=== PATIENT | female | born 1980 | race Caucasian/White ===

== ENCOUNTER → 2018-03-27 | Outpatient (CLI) | payer BC, OTHER ==
[2018-03-27 14:58] LABS: Source, Urine Clean Catch
[2018-03-27 17:00] LABS: Bilirubin, Urine Neg (Neg); Blood, Urine 1+ (Neg); Glucose Qualitative, Urine Neg (Neg); Ketones, Urine 2+ (Neg); Leukocyte Esterase, Urine Neg (Neg); Nitrite, Urine Neg (Neg); Protein, Urine 1+ (Neg); Specific Gravity, Urine 1.025 (1.003-1.022); Urobilinogen, Urine NORM (Normal)
[2018-03-27 17:10] LABS: Appearance, Urine Cloudy (Clear); Color, Urine Yellow (P-Yellow)
[2018-03-27 17:11] LABS: Amorphous Heavy (0-Heavy); Squamous Epithelial Cells Many /hpf (Few)
[2018-03-27 17:12] LABS: White Blood Cells, Urine 0-2 /hpf (0-5)
[2018-03-27 17:13] LABS: Bacteria Not Seen /hpf
== END ==
LOC: LAB 12:15 → LAB SHORT 12:15
PROVIDERS: Nurse Practitioner Family
DX: R10.9 Unspecified abdominal pain (principal)
CPT/HCPCS: 81001

== ENCOUNTER → 2018-04-01 | Outpatient (CLI) | payer BC, OTHER ==
[2018-04-01 12:09] LABS: Source, Urine Clean Catch
[2018-04-01 16:31] LABS: Bilirubin, Urine Neg (Neg); Blood, Urine Neg (Neg); Glucose Qualitative, Urine Neg (Neg); Ketones, Urine Neg (Neg); Leukocyte Esterase, Urine Neg (Neg); Nitrite, Urine Neg (Neg); Protein, Urine Neg (Neg); Urobilinogen, Urine NORM (Normal)
[2018-04-01 16:39] LABS: Appearance, Urine Clear (Clear); Color, Urine Pale Yellow (P-Yellow)
== END ==
LOC: LAB SHORT 11:03 → LAB 11:03
PROVIDERS: Nurse Practitioner Family
DX: R10.9 Unspecified abdominal pain (principal)
CPT/HCPCS: 81003

== ENCOUNTER → 2018-04-04 | Outpatient (CLI) | payer BC, OTHER ==
[2018-04-04 13:10] LABS: BASOPHILS ABSOLUTE AUTO 0.05 K/mm3 (0.00-0.23); BASOPHILS PERCENT AUTO 1 % (0-2); EOSINOPHILS ABSOLUTE AUTO 0.18 K/mm3 (0.00-0.68); EOSINOPHILS PERCENT AUTO 3 % (0-6); Hematocrit 38.5 % (33.0-51.0); Hemoglobin 13.7 g/dL (11.5-16.0); IMMATURE GRAN ABSOLUTE AUTO 0.01 K/mm3 (0.00-0.10); IMMATURE GRAN PERCENT AUTO 0 % (0-1); LYMPHOCYTES ABSOLUTE AUTO 2.21 K/mm3 (0.84-5.20); LYMPHOCYTES PERCENT AUTO 31 % (21-46); MONOCYTES ABSOLUTE AUTO 0.41 K/mm3 (0.16-1.47); MONOCYTES PERCENT AUTO 6 % (4-13); Mean Corpuscular HGB 30.8 pg (26.0-34.0); Mean Corpuscular HGB Conc 35.6 g/dL (31.5-36.5); Mean Corpuscular Volume 87 fL (80-100); Mean Platelet Volume 9.3 fL (9.1-12.4); NEUTROPHILS ABSOLUTE AUTO 4.29 K/mm3 (1.96-9.15); NEUTROPHILS PERCENT AUTO 60 % (41-73); Platelet Count 245 K/mm3 (150-400); RDW Coefficient Variation 11.8 % (11.7-14.2); RDW Standard Deviation 37.3 fL (35.1-46.3); Red Blood Cell Count 4.45 M/mm3 (3.80-5.20); White Blood Cell Count 7.15 K/mm3 (4.00-11.30)
[2018-04-04 13:49] LABS: Anion Gap 10 mmol/L (6-16); Blood Urea Nitrogen 12 mg/dL (8-24); Bun/Creatinine Ratio 13.5 (12.0-20.0); CO2, Blood 24 mmol/L (21-32); Calcium, Blood 8.6 mg/dL (8.5-10.1); Chloride, Blood 104 mmol/L (98-108); Creatinine, Blood 0.89 mg/dL (0.40-1.00); Glomerular Filtration Rate >60 (60-); Glucose, Blood 89 mg/dL (70-99); Potassium, Blood 3.9 mmol/L (3.5-5.5); Sodium, Blood 138 mmol/L (136-145); Thyroid Stimulating Hormone 1.691 uIU/mL (0.360-4.800)
== END ==
LOC: LAB SHORT 12:58 → LAB EV 12:58
PROVIDERS: Physician Assistant Surgical
DX: M54.5 Low back pain (principal)
CPT/HCPCS: 80048; 84443; 85025

== ENCOUNTER → 2018-11-17 | Outpatient (CLI) | payer BC, OTHER | END | disposition home or self-care (01) | LOC: LAB 15:42 → LAB SHORT 15:42 | DX: L70.0 Acne vulgaris (principal); Z79.899 Other long term (current) drug therapy | CPT/HCPCS: 81025 ==

== ENCOUNTER → 2019-01-05 | Outpatient (CLI) | payer BC, OTHER ==
[2019-01-06 07:17] LABS: HIV SCREEN 4TH GENERATION WRFX Non Reactive (Non Reactive)
[2019-01-06 08:15] LABS: HBSAG SCREEN Negative (Negative); HCV ANTIBODY 0.4 (0.0-0.9)
== END | disposition home or self-care (01) ==
LOC: LAB EV 11:55 → LAB SHORT 11:55
PROVIDERS: Family Medicine
DX: Z20.9 Contact with and (suspected) exposure to unspecified communicable disease (principal)
CPT/HCPCS: 84460; 86317; 86803; 87340; 87389

== ENCOUNTER → 2019-02-12 | Outpatient (CLI) | payer OTHER, BC ==
[2019-02-13 22:08] LABS: HIV SCREEN 4TH GENERATION WRFX Non Reactive (Non Reactive)
== END | disposition home or self-care (01) ==
LOC: LAB EV 15:40 → LAB SHORT 15:40
PROVIDERS: Family Medicine
DX: Z20.9 Contact with and (suspected) exposure to unspecified communicable disease (principal)
CPT/HCPCS: 86803; 87389

== ENCOUNTER → 2019-03-03 | Outpatient (CLI) | payer BC, OTHER | END | disposition home or self-care (01) | LOC: LAB EV 18:28 → LAB SHORT 18:28 | DX: L70.0 Acne vulgaris (principal); Z79.899 Other long term (current) drug therapy | CPT/HCPCS: 81025 ==

== ENCOUNTER 2019-04-02 08:00 | Day surgery (SDC) | payer BC, OTHER ==
[~2019-04-02 08:00] MED LIST: ACCUTANE PO; Budeprion Xl300 MG PO; CETI5 PO; ESCI20 PO; Flovent 44 mc10.6 GM INH; Singulair10 MG PO
--- NOTE | 2019-04-02 08:33 | NUR ---
Ambulatory in Day Surgery History, Chart, Medications and Allergies reviewed before start of procedure.Lungs clear T/O to Auscultation. Patient States Post-Procedure ride home has been arranged.
--- NOTE | 2019-04-02 08:53 | NUR ---
04/02/19 0853 Clemencia Shoemaker History, Chart, Medications and Allergies reviewed before start of procedure. PATIENT CONFIRMS NPO STATUS AND AGREES WITH SCHEDULED PROCEDURE. MONITOR INTACT WITH CONTINUOUS PULSE OXIMETRY AND INTERMITTENT BP. O2 VIA N/C INTACT THROUGHOUT SEDATION/PROCEDURE. 3-LEAD EKG REVIEWED WITH PHYSICIAN PRIOR TO START OF PROCEDURE. PROCEDURE TO BE UNDER VERSED AND FENTANYL SEDATION DUE TO SLEEP APNEA.
--- NOTE | 2019-04-02 10:06 | NUR ---
Patient up to Ambulate independently. Gait steady. Discharge instructions reviewed with patient. Patient verbalizes understanding. Copy given to patient to take home. Patient States Post-Procedure ride home has been arranged. Discharged via wheelchair to private car for ride home.
== END 2019-04-02 23:13 | disposition home or self-care (01) ==
LOC: ORSCMMR 08:00 → ORD 09:00 → ORSCMMR 23:13
PROVIDERS: Internal Medicine Gastroenterology
PROC: 0DJD8ZZ Inspection of Lower Intestinal Tract, Via Natural or Artificial Opening Endoscopic (ICD-10-PCS; principal; 2019-04-02 09:00)
DX: K62.5 Hemorrhage of anus and rectum (principal); Z80.0 Family history of malignant neoplasm of digestive organs; J45.909 Unspecified asthma, uncomplicated; F32.9 Major depressive disorder, single episode, unspecified; G47.30 Sleep apnea, unspecified; Z87.891 Personal history of nicotine dependence; Z79.899 Other long term (current) drug therapy
CPT/HCPCS: 84703; J2250; J3010; J7120

== ENCOUNTER → 2019-07-22 | Outpatient (CLI) | payer BC, OTHER | END | disposition home or self-care (01) | LOC: LAB SHORT 18:56 → LAB EV 18:56 | DX: L70.0 Acne vulgaris (principal); Z79.899 Other long term (current) drug therapy | CPT/HCPCS: 81025 ==

== ENCOUNTER → 2021-07-27 | Outpatient (CLI) | payer BC, OTHER ==
[2021-07-28 15:10] LABS: HPV 16 Negative (Negative); HPV 18 Negative (Negative); HPV OTHER HR TYPES Negative (Negative)
== END | disposition home or self-care (01) ==
LOC: LAB SHORT 14:53
PROVIDERS: Family Medicine
DX: Z01.419 Encounter for gynecological examination (general) (routine) without abnormal findings (principal)
CPT/HCPCS: 87624; G0123

== ENCOUNTER 2023-05-09 18:31 | Emergency (ER) | payer OTHER ==
[~2023-05-09] VITALS: Ht 157.5 cm; Wt 71.7 kg
[2023-05-09 18:40] VITALS: BP 120/79
[2023-05-11 08:11] LABS: HCV ANTIBODY Non Reactive (Non Reactive); HIV AB/P24 AG SCREEN Non Reactive (Non Reactive)
== END 2023-05-09 19:08 | disposition home or self-care (01) ==
LOC: ER 18:31
PROVIDERS: Physician Assistant
DX: Z77.21 Contact with and (suspected) exposure to potentially hazardous body fluids (principal); S61.402A Unspecified open wound of left hand, initial encounter; J45.909 Unspecified asthma, uncomplicated; Z91.040 Latex allergy status; Z79.899 Other long term (current) drug therapy; W26.8XXA Contact with other sharp object(s), not elsewhere classified, initial encounter; Y92.89 Other specified places as the place of occurrence of the external cause; Y99.0 Civilian activity done for income or pay
CPT/HCPCS: 84460; 86317; 86803; 87389; 99282

== ENCOUNTER → 2023-07-09 | Outpatient (CLI) | payer OTHER ==
[2023-07-11 03:10] LABS: CHLAMYDIA TRACHOMATIS, NAA Negative (Negative)
== END | disposition home or self-care (01) ==
LOC: LAB 09:08 → LAB SHORT 09:08
PROVIDERS: Family Medicine
DX: N76.0 Acute vaginitis (principal)
CPT/HCPCS: 87491; 87591

== ENCOUNTER → 2024-03-06 | Outpatient (CLI) | payer OTHER | LOC: LAB SHORT 17:31 → LAB 17:31 | DX: Z01.419 Encounter for gynecological examination (general) (routine) without abnormal findings (principal) ==

== ENCOUNTER → 2024-05-29 | Outpatient (CLI) | payer OTHER ==
[2024-05-29 19:19] LABS: Candida Group, PCR NOT DETECTED (NOT DETECT); Candida glabrata-krusei, PCR NOT DETECTED (NOT DETECT)
[2024-05-29 19:20] LABS: Bacterial Vaginosis PCR Positive (NEGATIVE)
[2024-05-31 09:55] LABS: APTIMA MEDIA TYPE Unisex Swab; C. TRACHOMATIS BY TMA Negative (Negative); N. GONORRHOEAE BY TMA Negative (Negative); SPECIMEN SOURCE Vaginal; T. VAGINALIS BY TMA Negative (Negative)
[2024-05-31 12:15] LABS: APTIMA MEDIA TYPE Unisex Swab; C. TRACHOMATIS BY TMA Negative (Negative); N. GONORRHOEAE BY TMA Negative (Negative); SPECIMEN SOURCE Pharynx
== END | disposition home or self-care (01) ==
LOC: LAB SHORT 16:43 → LAB 16:43
PROVIDERS: Family Medicine
DX: N89.8 Other specified noninflammatory disorders of vagina (principal); Z20.2 Contact with and (suspected) exposure to infections with a predominantly sexual mode of transmission
CPT/HCPCS: 87481; 87491; 87591; 87661; 87801

== ENCOUNTER 2025-03-08 06:35 | Day surgery (SDC) | payer OTHER ==
[~2025-03-08] VITALS: Ht 157.5 cm; Wt 64.1 kg
[2025-03-08] MEDS ORDERED: DIGEST ADV LAC (07:10)
[2025-03-08] MEDS ORDERED: VITAMIN D310 MC4 (07:11)
[2025-03-08] MEDS ORDERED: PROBIOTIC1 EA14 (07:11)
[2025-03-08] MEDS ORDERED: MAGCHL64ER (07:12)
[2025-03-08] MEDS ORDERED: ALDACTONE100 MG (07:12)
[2025-03-08] MEDS ORDERED: propofoL 50 ML IV ONE (07:34)
[2025-03-08] MEDS ORDERED: Lactated Ringer's 1,000 ML IV ONE ×2 (07:34→07:49)
[2025-03-08 08:49] VITALS: BP 93/74
== END 2025-03-08 08:51 | disposition home or self-care (01) ==
LOC: ORSCSDS 06:35
PROVIDERS: Surgery
PROC: 0DJD8ZZ Inspection of Lower Intestinal Tract, Via Natural or Artificial Opening Endoscopic (ICD-10-PCS; principal; 2025-03-08 08:00)
DX: Z12.11 Encounter for screening for malignant neoplasm of colon (principal); Z80.0 Family history of malignant neoplasm of digestive organs; F41.8 Other specified anxiety disorders; J45.909 Unspecified asthma, uncomplicated; G47.30 Sleep apnea, unspecified; Z79.899 Other long term (current) drug therapy
CPT/HCPCS: J2704; J7120